=== PATIENT | female | born 1985 | race African-American/Black ===

== ENCOUNTER → 2020-02-04 | Day surgery (SDC) | payer OTHER ==
[2020-01-31 11:33] LABS: BASOPHILS # (AUTO) 0.1 (0.0-0.1); BASOPHILS % 0.7 % (0.0-1.0); EOSINOPHILS # (AUTO) 0.8 (0.0-0.4); EOSINOPHILS % 10.5 % (0.0-6.0); HEMATOCRIT 38.6 % (34.2-44.1); HEMOGLOBIN 12.1 g/dL (12.0-16.0); LYMPHOCYTES % 26.3 % (18.0-39.1); MEAN CORPUSCULAR HEMOGLOBIN 25.9 pg (28-32); MEAN CORPUSCULAR HGB CONC 31.3 g/dL (31-35); MEAN CORPUSCULAR VOLUME 82.5 fL (81-99); MONOCYTES # (AUTO) 0.9 (0.2-0.8); MONOCYTES % 11.3 % (4.4-11.3); NEUTROPHILS # (AUTO) 3.8 (2.1-6.9); NEUTROPHILS % 50.9 % (38.7-80.0); PLATELET COUNT 222 x10e3/uL (140-360); RED BLOOD COUNT 4.68 x10e6/uL (3.6-5.1); RED CELL DISTRIBUTION WIDTH 16.2 % (11.7-14.4)
[2020-01-31 11:53] LABS: ALANINE AMINOTRANSFERASE 14 IU/L (0-55); ALBUMIN/GLOBULIN RATIO 0.8 (0.8-2.0); ALKALINE PHOSPHATASE 128 IU/L (40-150); ANION GAP 20.3 mmol/L (8-16); BLOOD UREA NITROGEN 8 mg/dL (7-26); BUN/CREATININE RATIO 9 (6-25); CALCIUM 8.5 mg/dL (8.4-10.2); CARBON DIOXIDE 21 mmol/L (22-29); CHLORIDE 101 mmol/L (98-107); CREATININE, SERUM 0.94 mg/dL (0.57-1.11); EST GLOMERULAR FILTRATION RATE > 60 ML/MIN (60-); GLUCOSE 386 mg/dL (74-118); POTASSIUM 4.3 mmol/L (3.5-5.1); SODIUM 138 mmol/L (136-145)
[~2020-02-04] MED LIST: BUPIVACAINE 0.5%/EPI 30 ML SDV INJ ONE; DEPAKOTE500 MG PO; FENTANYL CITRATE/PF 100MCG/2 ML INJ ONE; GLYCOPYRROLATE INJ 0.2 MG/ML VIAL ONE; IBUPROFEN 800MG/ 200ML 200 ML IV ONE; KEPPRA500 MG PO; LABETALOL HCL 5 MG/ML 20ML VIAL ONE; LANTUS 3ML100 UNITS/ SQ; LATUDA80 MG PO; LIDOCAINE HCL 2% LOCAL INJ 5 ML SDV VIAL INJ ONE; MIDAZOLAM HCL 2 MG/2 ML VIAL ONE; NEOSTIGMINE 1 MG/ML 10ML VIAL ONE; NOVOLOG100 UNIT/1 SC; ONDANSETRON HCL INJ 2MG/ML 2ML 2 MG/ML VIAL ONE; PROPOFOL IV EMULSION 10 MG/ML 20 ML VIAL ONE; ROCURONIUM BROMIDE 10 MG/ML 5ML VIAL IV ONE; SEVOFLURANE INHAL SOLN 250 ML PEN BTL ONE; TOPROL XL25 MG PO
--- NOTE | 2020-02-04 12:44 | Operative Report ---
DATE OF PROCEDURE: 02/04/2020 SURGEON: Gorge Lyles MD PREOPERATIVE DIAGNOSES: Cholecystitis and cholelithiasis. POSTOPERATIVE DIAGNOSES: Cholecystitis, cholelithiasis, and extensive intra-abdominal adhesions. OPERATIONS PERFORMED: Laparoscopic cholecystectomy and extensive lysis of intra-abdominal adhesions. ASSISTANTS: 1. Beltran Lyles MD. 2. REED Jones. ANESTHESIA: General. COMPLICATIONS: None. ESTIMATED BLOOD LOSS: Minimal. DESCRIPTION OF PROCEDURE: With the patient lying in bed in the supine position under good general endotracheal anesthesia, the abdomen was prepped with Betadine solution and draped in the usual manner. A Veress needle was introduced into the umbilicus and pneumoperitoneum was established. An 11 mm trocar was placed into the umbilicus and a 10 mm video laparoscope was placed into the intra-abdominal cavity. Immediately upon entering the intra-abdominal cavity, extensive adhesions were encountered. The omentum and the colon were stuck to the anterior abdominal wall. Using the camera, we managed to slowly and carefully take down some of the anterior abdominal wall adhesions and we were able to actually get to the upper abdomen, at which point we then managed to place the trocar in the subxiphoid space and then slowly and carefully started taking down all the adhesions. The lysis of adhesions actually took much longer than the actual operation for the cholecystectomy. All the adhesions to the anterior abdominal wall was slowly and carefully taken down and the colon was released from its adhesions anteriorly. Once this was done, two more trocars were placed in the right subcostal region. There was extensive adhesions to the right lobe of the liver and the gallbladder, which was totally covered up with adhesions. The gallbladder was also shrunken down, containing multiple stones. All of the adhesions of the gallbladder were then slowly and carefully taken down. We were then able to retract the gallbladder and dissect each neck all the way down. The junction of the common duct and cystic duct were then identified. The cystic duct was then circumferentially dissected away from the common duct, doubly clipped and divided. The cystic artery had an anterior and a posterior branch, and both of these were individually clipped and divided. The gallbladder was then slowly and carefully taken off the liver bed using the cautery scissors. There was a lot of fibrosis to the liver bed from the chronic inflammatory condition. Nonetheless, the gallbladder was totally and completely removed. Perfect hemostasis was ascertained. The gallbladder was placed in a pouch and removed through the umbilicus. Video laparoscopy was then again carried out. The liver bed was found to be dry. All the excess fluid was aspirated. The pneumoperitoneum was evacuated and all the trocars were removed under direct vision. The midline fascia at the umbilicus was then closed with a [id number] of 0 Vicryl. All layers were infiltrated on the way out with solution of 0.25% Marcaine. Subcutaneous tissue was approximated with 3-0 Vicryl and the skin was closed with subcuticular 5-0 Vicryl. Benzoin, Steri-Strips, and Band-Aids were applied. The sponge, lap, and needle count was correct. The patient tolerated the procedure well and returned to the recovery room in stable condition. MD MARGIE Bobo/LUCI /[id number]
[2020-02-04 13:35] VITALS: BP 121/84
== END | disposition home or self-care (01) ==
LOC: OR 06:50
PROVIDERS: ATTEND Surgery
DX: K80.10 Calculus of gallbladder with chronic cholecystitis without obstruction (principal); K74.0 Hepatic fibrosis; I10 Essential (primary) hypertension; E11.9 Type 2 diabetes mellitus without complications; K21.9 Gastro-esophageal reflux disease without esophagitis; R56.9 Unspecified convulsions; Z88.6 Allergy status to analgesic agent; Z01.810 Encounter for preprocedural cardiovascular examination; Z01.812 Encounter for preprocedural laboratory examination; Z11.59 Encounter for screening for other viral diseases; Z79.4 Long term (current) use of insulin
CPT/HCPCS: 36415 ×2; 47562; 80053; 81025; 82948; 85025; 88304; 93005; C1766; J2001; J2250; J2405; J2704; J2710; J3010; J3490; U0002